=== PATIENT | male | born 1975 | race Caucasian/White ===

== ENCOUNTER 2016-12-30 23:54 | Emergency (ER) | payer SELFPAY ==
[~2016-12-30] VITALS: Ht 160 cm; Wt 77.5 kg
[2016-12-31 00:14] VITALS: Ht 160 cm; Wt 77.5 kg
--- NOTE | 2016-12-31 03:01 | RADRPT ---
PROCEDURE: X-ray soft tissue neck CLINICAL INDICATION: Choking. TECHNIQUE: Frontal and lateral x-rays of the soft tissues of the neck are available for review. COMPARISON: None available FINDINGS: The epiglottis is normal. The airway is clear. Prevertebral soft tissues unremarkable. There is no radiopaque foreign body. The osseous structures are unremarkable. IMPRESSION: 1. Negative examination. RPTAT: HMVK .Marino Villarreal MD, MD Date Time Electronically viewed and signed by .Marino Villarreal MD, on 12/31/2016 03:00 .K/
--- NOTE | 2016-12-31 03:39 | ERD ---
ER Documentation Chief Complaint Date/Time DATE: 12/31/16 TIME: 03:35 Chief Complaint Pt reports SOB after eating denies Pain HPI Patient is a 41-year-old male with a history of appendectomy who presents to the emergency department with "choking" and shortness of breath after eating. Patient states for the last 4 months he has been having difficulty swallowing. Patient states he often feels like "he is choking" after eating. Patient states at 8 PM today he had a similar episode. Patient was able to drink fluids after episode of choking. Patient feels as if his food is getting stuck when he swallows. Patient denies any fevers, chills, nausea, vomiting, abdominal pain. Patient denies any chest pain, shortness of breath or loss of consciousness. ROS All systems reviewed and are negative except as per history of present illness. PMhx/Soc Medical and Surgical Hx: pt denies Medical Hx, pt denies Surgical Hx History of Surgery: No Anesthesia Reaction: No Hx Neurological Disorder: No Hx Respiratory Disorders: No Hx Cardiac Disorders: No Hx Psychiatric Problems: No Hx Miscellaneous Medical Probl: No Hx Alcohol Use: No Hx Substance Use: No Hx Tobacco Use: No Smoking Status: Never smoker FmHx Family History: No diabetes Physical Exam Vitals Vital Signs Date Time Temp Pulse Resp B/P Pulse Ox O2 Delivery O2 Flow Rate FiO2 12/31/16 00:14 98.5 68 16 171/85 100 Physical Exam GENERAL: Well-developed, well-nourished male. Appears in no acute distress. Speaking in full sentences. No abdominal retractions, no nasal flaring. HEAD: Normocephalic, atraumatic. EYES: Pupils are equally reactive bilaterally. EOMs grossly intact. No conjunctival erythema. ENT: Moist mucous membranes. No uvula deviation. No kissing tonsils. No throat swelling or closure noted. Able to swallow on command without any difficulty. NECK: Supple. No meningismus. Normal range of motion of the neck. LUNG: Clear to auscultation bilaterally. No rhonchi, wheezing, rales or coarse breath sounds. HEART: Regular rate and rhythm. No murmurs, rubs or gallops. ABDOMEN: Soft, nontender, and nondistended. Positive bowel sounds in all four quadrants. No rebound tenderness, no guarding. (-) McBurney's point tenderness. No CVA tenderness. BACK: No midline tenderness. EXTREMITIES: Equal pulses bilaterally. No peripheral clubbing, cyanosis or edema. No unilateral leg swelling. NEUROLOGIC: Alert and oriented. Moving all four extremities without any difficulty. Normal speech. Steady gait. SKIN: Normal color. Warm and dry. No rashes or lesions. Procedures/MDM ED COURSE: The patient was stable throughout ED course. I kept the patient and/or family informed of laboratory and diagnostic imaging results throughout the ED course. DIAGNOSTIC IMAGING: Read by radiologist. Patient: BARBARA ARCEO : 1975 Age: 41 Sex: M MR #: [id number] DOS: 12/31/16 0213 Ordering MD: LIZ GENTILE PA-C Location: [facility] Room/Bed: PROCEDURE: X-ray soft tissue neck CLINICAL INDICATION: Choking. TECHNIQUE: Frontal and lateral x-rays of the soft tissues of the neck are available for review. COMPARISON: None available FINDINGS: The epiglottis is normal. The airway is clear. Prevertebral soft tissues unremarkable. There is no radiopaque foreign body. The osseous structures are unremarkable. IMPRESSION: 1. Negative examination. RPTAT: HMVK .Marino Villarreal MD, MD Date Time Electronically viewed and signed by .Marino Villarreal MD, on 12/31/2016 03:00 .K/ CC: LIZ GENTILE PA-C PROCEDURES: None. MEDICAL DECISION MAKING: Patient is a 41 year old who presents throat irritation and dysphagia x 4 months. Vital signs were reviewed. Patient is afebrile. Patient was not hypoxic. Xray imaging soft tissue neck was unremarkable. Patient's presentation is most consistent with dysphagia. I explained to the patient and his that at this time, we are unable to rule out malignancy or esophageal disorders at this time. Patient will need an endoscopy on an outpatient basis. Low suspicion for retained foreign body, strep pharyngitis, viral pharyngitis, mononucleosis, epiglottitis, peritonsillar abscess. DISCHARGE: At this time, patient is stable for discharge and outpatient management. Patient provided with x-ray imaging copies. Patient advised that he will need to follow-up with a GI specialist for further management of his ongoing symptoms. Patient provided with referral information. I have instructed the patient to follow-up with his/her primary care physician in 1-2 days. I have instructed the patient to promptly return to the ER for any new or worsening symptoms including increased pain, fever, nausea, vomiting, weakness or LOC. The patient and/or family expressed understanding of and agreement with this plan. All questions were answered. Home care instructions were provided. Patient's blood pressure was elevated (>120/80) but appears stable without evidence of hypertensive emergency, hypertensive urgency or end-organ failure. I had discussion with the patient about the risks of hypertension. I have advised the patient to follow up with his/her primary care physician for outpatient monitoring and treatment for hypertension in 2-3 days. I have instructed the patient to return to the ER for any new or worsening symptoms including chest pain, shortness of breath, headache, blurred vision, confusion, nausea, vomiting or LOC. Departure Diagnosis: Primary Impression: Dysphagia Dysphagia type: unspecified Qualified Code: R13.10 - Dysphagia, unspecified type Additional Impression: Throat irritation Condition: Stable Patient Instructions: Treating Dysphagia Referrals: PATRICIO JOE MD,ITZ CARDONA,RODO RED,KATHLEEN MARTINEZ,DANIEL HUMPHREY,CHASITY BROWN,MARIN MATHEWS M.D. [facility] YOU HAVE RECEIVED A MEDICAL SCREENING EXAM AND THE RESULTS INDICATE THAT YOU DO NOT HAVE A CONDITION THAT REQUIRES URGENT TREATMENT IN THE EMERGENCY DEPARTMENT. FURTHER EVALUATION AND TREATMENT OF YOUR CONDITION CAN WAIT UNTIL YOU ARE SEEN IN YOUR DOCTORS OFFICE WITHIN THE NEXT 1-2 DAYS. IT IS YOUR RESPONSIBILITY TO MAKE AN APPOINTMENT FOR FOLOW-UP CARE. IF YOU HAVE A PRIMARY DOCTOR --you should call your primary doctor and schedule an appointment IF YOU DO NOT HAVE A PRIMARY DOCTOR YOU CAN CALL OUR PHYSICIAN REFERRAL HOTLINE AT IF YOU CAN NOT AFFORD TO SEE A PHYSICIAN YOU CAN CHOSE FROM THE FOLLOWING [facility] [address] [facility]. [facility] [address] [facility] [address] [facility] [address] [facility] [address] [facility]. [facility]. [address] [facility]. [facility] YOU HAVE RECEIVED A MEDICAL SCREENING EXAM AND THE RESULTS INDICATE THAT YOU DO NOT HAVE A CONDITION THAT REQUIRES URGENT TREATMENT IN THE EMERGENCY DEPARTMENT. FURTHER EVALUATION AND TREATMENT OF YOUR CONDITION CAN WAIT UNTIL YOU ARE SEEN IN YOUR DOCTORS OFFICE WITHIN THE NEXT 1-2 DAYS. IT IS YOUR RESPONSIBILITY TO MAKE AN APPOINTMENT FOR FOLOW-UP CARE. IF YOU HAVE A PRIMARY DOCTOR --you should call your primary doctor and schedule and appointment IF YOU DO NOT HAVE A PRIMARY DOCTOR YOU CAN CALL OUR PHYSICIAN REFERRAL HOTLINE AT . IF YOU CAN NOT AFFORD TO SEE A PHYSICIAN YOU CAN CHOSE FROM THE FOLLOWING [facility] INSTITUTIONS: [facility] [address] [place] [address] [facility] [address] [place] [address] [facility] + [facility] [address] [place] [address] Additional Instructions: Call your primary care doctor TOMORROW for an appointment during the next 1-2 days.See the doctor sooner or return here if your condition worsens before your appointment time. Patient will need to follow-up with a GI specialist for an endoscopy on an outpatient basis. Cannot rule out malignancy at this time. LIZ GENTILE PA-C Dec 31, 2016 03:39 outpatient basis. Cannot rule out malignancy at this time. LIZ GENTILE PA-C Dec 31, 2016 03:39
== END 2016-12-31 03:30 | disposition home or self-care (01) ==
LOC: FTE 23:54 → E/R 12-31 03:30
DX: R13.10 Dysphagia, unspecified (principal); J39.2 Other diseases of pharynx
CPT/HCPCS: 70360